=== PATIENT | female | born 1995 | race American Indian/Alaskan Native ===

== ENCOUNTER 2019-12-01 11:18 | Emergency (ER) | payer MEDICAID ==
[2019-12-01 11:28] VITALS: BP 117/73
--- NOTE | 2019-12-01 12:51 | Event Note ---
ED Screening Note Date of service: 12/01/19 Time: 12:50 ED Screening Note: This 24-year-old female presents with left-sided flank pain with pain with urination times a couple of days. She admits nausea but denies vomiting. This initial assessment/diagnostic orders/clinical plan/treatment(s) is/are subject to change based on patients health status, clinical progression and re- assessment by fellow clinical providers in the ED. Further treatment and workup at subsequent clinical providers discretion. Patient/guardian urged not to elope from the ED as their condition may be serious if not clinically assessed and managed. Initial orders include: Labs ordered, UA. ACC evaluate
[2019-12-01 13:08] LABS: Bacteria,Urine 1+ /HPF (Negative); Bilirubin,Urine NEG (Negative); Blood,Urine NEG (Negative); Color,Urine Yellow (Yellow); Mucus,Urine FEW /HPF; Protein,Urine <15 mg/dL mg/dL (Negative); RBC,Urine < 1.0 /HPF (0.0-6.0); Urobilinogen,Urine < 2.0 mg/dL (<2.0)
[2019-12-01 13:37] LABS: Basophils % (Auto) 0.4 % (0.0-1.8); Eosinophils # (Auto) 0.1 K/mm3 (0.0-0.4); Eosinophils % (Auto) 2.2 % (0.0-4.3); Hematocrit 35.7 % (30.3-42.9); Hemoglobin 11.7 gm/dl (10.1-14.3); Lymphocytes # (Auto) 1.8 K/mm3 (1.2-5.4); Lymphocytes % (Auto) 37.8 % (13.4-35.0); Mean Corpuscular HGB Conc 33 % (30-34); Mean Corpuscular Volume 79 fl (79-97); Monocytes # (Auto) 0.6 K/mm3 (0.0-0.8); Monocytes % (Auto) 11.7 % (0.0-7.3); Platelet Count 217 K/mm3 (140-440); Red Blood Count 4.52 M/mm3 (3.65-5.03); Red Cell Distribution Width 15.6 % (13.2-15.2)
[2019-12-01 14:19] LABS: Alanine Aminotransferase 11 units/L (7-56); Albumin 3.9 g/dL (3.9-5); BUN/Creatinine Ratio 23; Blood Urea Nitrogen 14 mg/dL (7-17); Calcium 9.5 mg/dL (8.4-10.2); Hemolysis Index 6
--- NOTE | 2019-12-01 15:35 | Emergency Department Report ---
ED Female HPI - General Chief complaint: Abdominal Pain Stated complaint: CRAMPS/KIDNEY PAIN Source: patient Mode of arrival: Ambulatory Limitations: No Limitations - History of Present Illness Initial comments: This is a 24-year-old female nontoxic, well nourished in appearance, no acute signs of distress presents to the ED with c/o of pelvic pain, left flank pain and nausea times several days. Patient denies known . Patient denies vaginal discharge. Patient denies any vaginal bleeding, abdominal pain, fever, chills, nausea, vomiting, headache, stiff neck, numbness or tingling. Patient denies any urinary symptoms. Denies any allergies or significant past medical history. MD Complaint: pelvic pain, other (left flank pain with nausea) -: days(s) Radiation: non-radiating Severity: mild Severity scale (0 -10): 3 Quality: cramping, aching Consistency: constant Improves with: none Worsens with: none Are you Now?: Yes Associated Symptoms: nausea/vomiting. denies: vaginal discharge, vaginal bleeding, abdominal pain, fever/chills, headaches, loss of appetite, dysuria, h ematuria, rash, seizure, shortness of breath, syncope, weakness - Related Data Sexually active: Yes Previous Rx's Medication Instructions Recorded Last Taken Type Ferrous Sulfate [Feosol 325 MG tab] 325 mg PO BID #60 tablet 03/08/18 Unknown Rx HYDROcodone/APAP 5-325 [[place] 1 each PO Q6HR PRN #30 tablet 03/08/18 Unknown Rx 5/325] Ibuprofen [Motrin] 800 mg PO Q8HR PRN #30 tablet 03/08/18 Unknown Rx 21/Iron Fu/Folic Acid 1 each PO DAILY #30 tablet 12/01/19 Unknown Rx [ Complete Caplet] Allergies Allergy/AdvReac Type Severity Reaction Status Date / Time No Known Allergies Allergy Verified 12/01/19 11:25 ED Review of Systems ROS: Stated complaint: CRAMPS/KIDNEY PAIN Other details as noted in HPI Constitutional: denies: chills, fever Eyes: denies: eye pain, eye discharge, vision change ENT: denies: ear pain, throat pain Respiratory: denies: cough, shortness of breath, wheezing Cardiovascular: denies: chest pain, palpitations Endocrine: no symptoms reported Gastrointestinal: nausea, other (pelvic pain). denies: abdominal pain, v omiting, diarrhea, constipation, hematemesis, melena, hematochezia Genitourinary: denies: urgency, dysuria, discharge Musculoskeletal: denies: back pain, joint swelling, arthralgia Skin: denies: rash, lesions Neurological: denies: headache, weakness, paresthesias Psychiatric: denies: anxiety, depression Hematological/Lymphatic: denies: easy bleeding, easy bruising ED Past Medical Hx - Past Medical History Hx Hypertension: No Hx Congestive Heart Failure: No Hx Diabetes: No Hx Deep Vein Thrombosis: No Hx Renal Disease: No Hx Sickle Cell Disease: No Hx Seizures: No Hx Asthma: No Hx COPD: No Hx HIV: No - Social History Smoking Status: Never Smoker Substance Use Type: Alcohol - Medications Home Medications: Home Medications Medication Instructions Recorded Confirmed Last Taken Type Ferrous Sulfate [Feosol 325 MG tab] 325 mg PO BID #60 tablet 03/08/18 Unknown Rx HYDROcodone/APAP 5-325 [[place] 1 each PO Q6HR PRN #30 tablet 03/08/18 Unknown Rx 5/325] Ibuprofen [Motrin] 800 mg PO Q8HR PRN #30 tablet 03/08/18 Unknown Rx 21/Iron Fu/Folic Acid 1 each PO DAILY #30 tablet 12/01/19 Unknown Rx [ Complete Caplet] ED Physical Exam - General Limitations: No Limitations General appearance: alert, in no apparent distress - Head Head exam: Present: atraumatic, normocephalic - Eye Eye exam: Present: normal appearance - Neck Neck exam: Present: normal inspection, full ROM. Absent: tenderness, m eningismus, lymphadenopathy - Respiratory Respiratory exam: Present: normal lung sounds bilaterally. Absent: respiratory distress, wheezes, rales, rhonchi, stridor, chest wall tenderness, accessory muscle use, decreased breath sounds, prolonged expiratory - Cardiovascular Cardiovascular Exam: Present: regular rate, normal rhythm, normal heart sounds. Absent: bradycardia, tachycardia, irregular rhythm, systolic murmur, diastolic murmur, rubs, gallop - GI/Abdominal GI/Abdominal exam: Present: soft, normal bowel sounds. Absent: distended, tenderness, guarding, rebound, rigid, diminished bowel sounds - Extremities Exam Extremities exam: Present: normal inspection, full ROM - Back Exam Back exam: Present: normal inspection, full ROM. Absent: tenderness, CVA tenderness (R), CVA tenderness (L), muscle spasm, paraspinal tenderness, vertebral tenderness, rash noted - Neurological Exam Neurological exam: Present: alert, oriented X3, normal gait - Psychiatric Psychiatric exam: Present: normal affect, normal mood - Skin Skin exam: Present: warm, dry, intact, normal color. Absent: rash ED Course Vital Signs 12/01/19 11:26 Temperature 98.2 F Pulse Rate 82 Respiratory 16 Rate Blood Pressure 117/73 O2 Sat by Pulse 96 Oximetry - Reevaluation(s) Reevaluation #1: 12/01/19 15:35 Patient is speaking in full sentences with no signs of distress noted. ED Medical Decision Making - Lab Data Result diagrams: 12/01/19 12:56 12/01/19 12:56 - Radiology Data Referring Physician: IVONNE HERNANDEZ Patient Name: GINA STERLING Date of : 1995 Sex: Female Report Date: 2019-12-01 Report Status: [place] [address] Ultrasound Report Signed Patient: GINA STERLING MR#: [id number] : 1995 Acct:[id number] Age/Sex: 24 / F ADM Date: 12/01/19 Loc: ED Attending Dr: Ordering Physician: IVONNE HERNANDEZ NP Date of Service: 12/01/19 Procedure(s): US OB <= 14 weeks fetus Accession Number(s): [id number] cc: IVONNE HERNANDEZ NP US OB <= 14 weeks fetus INDICATION / CLINICAL INFORMATION: pelvic pain. TECHNIQUE: Transabdominal and Transvaginal. COMPARISON: None available. FINDINGS: UTERUS: Appears within normal limits. GESTATIONAL SAC: Gestational sac demonstrates slightly irregular contour. Gestational sac measures 13 mm consistent with 6 weeks and 1 day gestational age. YOLK SAC: No significant abnormality. EMBRYO/FETUS: No pole is visualized. ADNEXA: No significant abnormality. FREE FLUID: None. ADDITIONAL FINDINGS: None. IMPRESSION: 1. Gestational sac demonstrating irregular contour without a pole. Recommend trending bHCG with repeat sonograms as clinically indicated. Signer Name: Balaji Campos MD Signed: 12/01/2019 5:55 PM Workstation Name: [id number] Transcribed By: CELSO Dictated By: Balaji Campos MD Electronically Authenticated By: Balaji Campos MD Signed Date/Time: 12/01/191754 DD/ 51 TD/TT: Referring Physician: IVONNE HERNANDEZ Patient Name: GINA SETRLING Date of : 1995 Sex: Female Report Date: 2019-12-01 Report Status: Finalized [facility] [address] [place] [address] Ultrasound Report Signed Patient: GINA STERLING MR#: [id number] : 1995 Acct:[id number] Age/Sex: 24 / F ADM Date: 12/01/19 Loc: ED Attending Dr: Ordering Physician: IVONNE HERNANDEZ NP Date of Service: 12/01/19 Procedure(s): US OB transvaginal Accession Number(s): [id number] cc: IVONNE HERNANDEZ NP US OB transvaginal INDICATION / CLINICAL INFORMATION: pelvic pain. TECHNIQUE: Transabdominal and Transvaginal. COMPARISON: None available. FINDINGS: UTERUS: Appears within normal limits. GESTATIONAL SAC: Gestational sac demonstrates slightly irregular contour. Gestational sac measures 13 mm consistent with 6 weeks and 1 day gestational age. YOLK SAC: No significant abnormality. EMBRYO/FETUS: No pole is visualized. ADNEXA: No significant abnormality. FREE FLUID: None. ADDITIONAL FINDINGS: None. IMPRESSION: 1. Gestational sac demonstrating irregular contour without a pole. Recommend trending bHCG with repeat sonograms as clinically indicated. Signer Name: Balaji Campos MD Signed: 12/01/2019 5:55 PM Workstation Name: [id number] Transcribed By: CELSO Dictated By: Balaji Campos MD Electronically Authenticated By: Balaji Campos MD Signed Date/Time: 12/01/191754 DD/ 54 TD/TT: - Medical Decision Making This is a 24-year-old female that presents with pelvic pain during . Patient is stable and was examined by me. Normal abdominal exam. US OB obtained and dictated by the radiologist. Ua obtained. Quantative serum test obtained. Patient notified of the US report with no questions noted by the patient. Patient was instructed f/u with [facility] in 2 days or return to the ED for follow- up test for r/p ectopic . Labs within normal limits. Patient was given strict precautions and education on ectopic . At time of dis charge, the patient does not seem toxic or ill in appearance. No acute signs of distress noted. Patient agrees to discharge treatment plan of care. No further questions noted by the patient. Critical care attestation.: If time is entered above; I have spent that time in minutes in the direct care of this critically ill patient, excluding procedure time. ED Disposition Clinical Impression: Pelvic pain during Disposition: DC- TO HOME OR SELFCARE Is pt being admited?: No Does the pt Need Aspirin: No Condition: Stable Additional Instructions: Follow-up with a [facility] doctor in 2 days or return to the ED for follow-up blood work with possible Ultrasound or if symptoms worsen and continue return to emergency room as soon as possible. Prescriptions: 21/Iron Fu/Folic Acid [ Complete Caplet] 1 each PO DAILY #30 tablet Referrals: PRIMARY CARE, [Referring] - 3-5 Days [facility] [Provider Group] - 12/03/19 [facility] [Provider Group] - 12/03/19 Forms: Work/School Release Form(ED)
--- NOTE | 2019-12-01 17:59 | Ultrasound Report ---
US OB transvaginal INDICATION / CLINICAL INFORMATION: pelvic pain. TECHNIQUE: Transabdominal and Transvaginal. COMPARISON: None available. FINDINGS: UTERUS: Appears within normal limits. GESTATIONAL SAC: Gestational sac demonstrates slightly irregular contour. Gestational sac measures 13 mm consistent with 6 weeks and 1 day gestational age. YOLK SAC: No significant abnormality. EMBRYO/FETUS: No pole is visualized. ADNEXA: No significant abnormality. FREE FLUID: None. ADDITIONAL FINDINGS: None. IMPRESSION: 1. Gestational sac demonstrating irregular contour without a pole. Recommend trending bHCG with repeat sonograms as clinically indicated. Signer Name: Balaji Campos MD Signed: 12/01/2019 5:55 PM Workstation Name: [id number]
--- NOTE | 2019-12-01 17:59 | Ultrasound Report ---
US OB <= 14 weeks fetus INDICATION / CLINICAL INFORMATION: pelvic pain. TECHNIQUE: Transabdominal and Transvaginal. COMPARISON: None available. FINDINGS: UTERUS: Appears within normal limits. GESTATIONAL SAC: Gestational sac demonstrates slightly irregular contour. Gestational sac measures 13 mm consistent with 6 weeks and 1 day gestational age. YOLK SAC: No significant abnormality. EMBRYO/FETUS: No pole is visualized. ADNEXA: No significant abnormality. FREE FLUID: None. ADDITIONAL FINDINGS: None. IMPRESSION: 1. Gestational sac demonstrating irregular contour without a pole. Recommend trending bHCG with repeat sonograms as clinically indicated. Signer Name: Balaji Campos MD Signed: 12/01/2019 5:55 PM Workstation Name: [id number]
== END 2019-12-01 18:38 | disposition home or self-care (01) ==
LOC: ED 11:18
DX: O26.891 Other specified pregnancy related conditions, first trimester (principal)
CPT/HCPCS: 36415; 76801; 76817; 80053; 81001; 84702; 84703; 85025